=== PATIENT | female | born 1955 | race Caucasian/White ===

== ENCOUNTER → 2025-03-08 09:31 | Outpatient (REF) | payer BC, SELFPAY | LOC: HWWDC 09:31 | PROVIDERS: ATTENDING PHYSICIAN Obstetrics & Gynecology Gynecology; FAMILY PHYSICIAN Family Medicine | DX: M81.0 Age-related osteoporosis without current pathological fracture (principal); Z12.31 Encounter for screening mammogram for malignant neoplasm of breast | CPT/HCPCS: 77063; 77067; 77080 ==